=== PATIENT | male | born 1955 | race Caucasian/White ===

== ENCOUNTER 2024-12-24 18:27 | Emergency (ER) | payer MEDICARE, OTHER ==
[~2024-12-24] VITALS: Ht 167.6 cm; Wt 81.7 kg
[~2024-12-24 18:27] MED LIST: HYDACE5 PO
[2024-12-24 19:11] VITALS: BP 154/91
[2024-12-24] MEDS ORDERED: Meclizine HCl 25 MG Tab PO ONE (19:15)
[2024-12-24] MEDS ORDERED: MECLIZINE HCL PO (20:51)
== END 2024-12-24 20:55 | disposition home or self-care (01) ==
LOC: ER 18:27
DX: H81.10 Benign paroxysmal vertigo, unspecified ear (principal); Z79.899 Other long term (current) drug therapy
CPT/HCPCS: 99283; A9270